=== PATIENT | male | born 1955 | race African-American/Black ===

== ENCOUNTER 2018-06-05 14:45 | Emergency (ER) | payer MEDICARE, OTHER ==
[~2018-06-05] VITALS: Ht 179.1 cm; Wt 65.8 kg
[2018-06-05 14:49] VITALS: BP 120/75
[2018-06-05] MEDS ORDERED: VITAMIN C250 MG ORAL (14:53)
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
[2018-06-05] MEDS: Ketorolac 30mg Inj IM ONE (15:26)
[2018-06-05] MEDS ORDERED: ROBAXIN500 MG PO (16:15)
[2018-06-05] MEDS ORDERED: LIDOCAINE700 M1 TP (16:15)
[2018-06-05] MEDS ORDERED: IBUPROFEN600 MG ORAL (16:15)
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
[2018-06-05 17:13] VITALS: BP 128/86
--- NOTE | 2018-06-05 17:13 | NUR ---
ED Nurse Note: Pt cleared by Health Care Provider for discharge. Instructed on how to use crutches. DC instructions/prescriptions given and explained to pt and verbalized understanding of teachings. All medical devices such as ID band removed. Pt AAO x4, ambulatory and left with all personal belongings.
== END 2018-06-05 17:13 | disposition home or self-care (01) ==
LOC: EMR 15:20
DX: M75.42 Impingement syndrome of left shoulder (principal); M47.9 Spondylosis, unspecified; M16.12 Unilateral primary osteoarthritis, left hip; M54.9 Dorsalgia, unspecified; F17.200 Nicotine dependence, unspecified, uncomplicated
CPT/HCPCS: 72020; 73030; 73502; 96372; 99284; J1885